=== PATIENT | female | born 1980 | race Two or more races ===

== ENCOUNTER 2022-07-09 21:19 | Emergency (ER) | payer OTHER ==
[~2022-07-09] VITALS: Ht 154.9 cm; Wt 56.7 kg
--- NOTE | 2022-07-09 21:24 | NUR ---
[facility], [facility] "TOOK METH [address] SUPER[address]ENT, WAS SOBER FOR A MONTH" PT STATES "I THINK METH WAS LACED WITH SOMETHING"
--- NOTE | 2022-07-09 23:40 | NUR ---
URINE COLLECTED AND SENT TO LAB
--- NOTE | 2022-07-10 05:51 | NUR ---
Patient discharged to home in stable condition. Written and verbal after care instructions given. Patient verbalizes understanding of instruction. IV removed. Catheter intact and site benign. Pressure and 4x4 applied to site. No bleeding noted.
[2022-07-10 05:52] VITALS: BP 137/89
== END 2022-07-10 06:20 | disposition home or self-care (01) ==
LOC: ER 21:22
DX: F15.10 Other stimulant abuse, uncomplicated (principal)